=== PATIENT | male | born 1995 | race Caucasian/White ===

== ENCOUNTER 2020-12-02 13:10 | Emergency (ER) | payer OTHER ==
[2020-12-02 14:54] VITALS: BP 116/65
== END 2020-12-02 14:06 | disposition home or self-care (01) ==
LOC: ED 13:10
DX: F41.9 Anxiety disorder, unspecified (principal); F17.200 Nicotine dependence, unspecified, uncomplicated

== ENCOUNTER 2022-01-20 22:15 | Emergency (ER) | payer OTHER ==
[~2022-01-20] VITALS: Ht 165.1 cm; Wt 96.2 kg
[2022-01-20] MEDS ORDERED: HYDROXYZINE HCL25 M1 PO (23:30)
[2022-01-20 23:38] VITALS: BP 121/77
== END 2022-01-20 23:40 | disposition home or self-care (01) ==
LOC: ED 22:15
DX: F41.9 Anxiety disorder, unspecified (principal); Z28.310 Unvaccinated for COVID-19